=== PATIENT | male | born 1955 | race Caucasian/White ===

== ENCOUNTER 2017-04-11 12:12 | Emergency (ER) | payer MEDICAID ==
[~2017-04-11] VITALS: Ht 167.6 cm; Wt 67.0 kg
[~2017-04-11 12:12] MED LIST: LISI-167 PO
[2017-04-11 12:31] VITALS: BP 143/89
[2017-04-11] MEDS ORDERED: FLUORESCEIN OPHTHALMIC 1 MG STRIP ONE (12:41)
[2017-04-11] MEDS ORDERED: PROPARACAINE OPHTH 0.5%, 15ML ONE (12:42)
[2017-04-11] MEDS ORDERED: PROPARACAINE OPHTH 0.5%, 15ML EACHEYE ONE (13:00)
[2017-04-11] MEDS ORDERED: FLUORESCEIN OPHTHALMIC 1 MG STRIP EACHEYE ONE (13:00)
== END 2017-04-11 13:05 | disposition home or self-care (01) ==
LOC: ED 12:44
DX: S05.01XA Injury of conjunctiva and corneal abrasion without foreign body, right eye, initial encounter (principal); I10 Essential (primary) hypertension; Z88.6 Allergy status to analgesic agent; X58.XXXA Exposure to other specified factors, initial encounter; Y93.89 Activity, other specified; Y92.89 Other specified places as the place of occurrence of the external cause; Y99.8 Other external cause status
CPT/HCPCS: 99283